=== PATIENT | female | born 1985 | race American Indian/Alaskan Native ===

== ENCOUNTER 2021-09-12 06:01 | Day surgery (SDC) | payer OTHER ==
[2021-09-09 12:49] LABS: Basophils # (Auto) 0.1 K/mm3 (0.0-0.1); Basophils % (Auto) 1.3 % (0.0-1.8); Eosinophils # (Auto) 0.1 K/mm3 (0.0-0.4); Eosinophils % (Auto) 1.1 % (0.0-4.3); Hematocrit 43.5 % (30.3-42.9); Hemoglobin 13.7 gm/dl (10.1-14.3); Lymphocytes # (Auto) 1.5 K/mm3 (1.2-5.4); Lymphocytes % (Auto) 27.9 % (13.4-35.0); Mean Corpuscular HGB Conc 32 % (30-34); Mean Corpuscular Volume 85 fl (79-97); Monocytes # (Auto) 0.4 K/mm3 (0.0-0.8); Monocytes % (Auto) 7.7 % (0.0-7.3); Platelet Count 322 K/mm3 (140-440); Red Blood Count 5.11 M/mm3 (3.65-5.03); Red Cell Distribution Width 14.1 % (13.2-15.2)
[2021-09-09 13:07] LABS: BUN/Creatinine Ratio 9; Blood Urea Nitrogen 9 mg/dL (7-17); Hemolysis Index 5
--- NOTE | 2021-09-09 14:00 | Anesthesia Consultation ---
Anesthesia Consult and Med Hx Date of service: 09/09/21 - Airway Anesthetic Teeth Evaluation: Good ROM Head & Neck: Adequate Mental/Hyoid Distance: Adequate Mallampati Class: Class II Intubation Access Assessment: Probably Good - Pulmonary Exam CTA: Yes - Cardiac Exam Cardiac Exam: RRR - Pre-Operative Health Status ASA Pre-Surgery Classification: ASA3 Proposed Anesthetic Plan: General Nerve Block: TAP - Pulmonary Hx Smoking: No Hx Asthma: Yes (albuterol prn; triggered by seasonal allergies) - Cardiovascular System Hx Hypertension: No (see details below) Hx Heart Attack/AMI: No Hx Percutaneous Transluminal Coronary Angioplasty (PTCA): No - Central Nervous System Hx Neuromuscular Disorder: Yes (chronic migraines) CVA: No Hx Back Pain: Yes Hx Psychiatric Problems: Yes (depression) - Endocrine Hx Renal Disease: No Hx Liver Disease: No Hx Insulin Dependent Diabetes: No Hx Non-Insulin Dependent Diabetes: No Hx Thyroid Disease: No - Other Systems Hx Obesity: Yes (BMI 41) - Additional Comments Anesthesia Medical History Comments: No hx anesthetic complications. Reports ongoing PCP evaluation for recent elevated BP. BP elevated in PAT, which patient reports is higher than normal and may be related to migraine at time of BP measurement. Not currently on antihypertensives.
--- NOTE | 2021-09-11 15:45 | History and Physical Report ---
History of Present Illness Date of examination: 09/10/21 History of present illness: Patient has been reassessed/reevaluated. H&P has been reviewed. No interval changes. This is a 36 years old female who presents with menstrual disorder. She complains of irregular menses, mid-cycle spotting, heavy bleeding, dysmenorrhea, history of fibroids and cramping, but denies lack of menses, clotting, history of ovarian cysts, history of thyroid disease, history of bleeding disorder, lightheadedness and fatigue. Patient's symptoms when present disrupts her normal daily activities She complains of abdominal pain, abdominal pressure, pelvic pain and pelvic pressure,. Patient's work up has included hysterosonogram with a benign endometrial biopsy and revealed large myoma. Patient has been evaluated by Dr Cruz and is not a candidate for UFE. Patient desires definitive treatment Vital Signs: Patient Profile: 36 Years Old Female LMP: 08/28/2021 Height: 63 inches Weight: 235 pounds BMI: 41.62 Temp: 97.5 degrees F BP sittin / 90 (right arm) Menstrual History: LMP (date): 08/28/2021 Current Method of Contraception: None Date of Last Pap Smear: 05/14/2021 Past History : 1 Term Births: 0 Premature Births: 0 Living Children: 0 Para: 0 Mult. Births: 0 Prev : 0 Aborta: 1 Elect. Ab: 1 Spont. 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 of genital herpes: no Hx of STD: None Review of Systems General Denies fever, chills, sweats, anorexia, fatigue, weakness, malaise, weight loss and sleep disorder. Complains of menorrhagia, pelvic pain and painful periods. Denies vaginal discharge, incontinence, dysuria, hematuria, urinary frequency, amenorrhea, abnormal vaginal bleeding, genital sores, decreased libido, painful sex, urinary urgency, hot flashes, vaginal dryness, vaginal itching and vaginal odor. CV Denies chest pains, palpitations, syncope, dyspnea on exertion, orthopnea, PND and peripheral edema. Resp Denies cough, dyspnea at rest, excessive sputum, hemoptysis, wheezing and pleurisy. GI Denies nausea, vomiting, diarrhea, constipation, change in bowel habits, abdominal pain, melena, hematochezia, jaundice, gas/bloating, indigestion/heartburn, dysphagia and odynophagia. Breast Denies left breast lump, right breast lump, nipple discharge, bloody discharge from nipple, breast pain, abnormal mammogram and breast enlargement. Psych Denies depression, anxiety, irritability and mood swings. Past History Past Medical History: other (SEE HPI) Past Surgical History: Other (SEE HPI) Social history: full code, other (SEE HPI) Family history: other (SEE HPI) Medications and Allergies Allergies Allergy/AdvReac Type Severity Reaction Status Date / Time amoxicillin AdvReac Severe Shortness Verified 09/04/21 12:33 of Breath Home Medications Medication Instructions Recorded Confirmed Last Taken Type Albuterol *Only Ed* 2 puff INHALATION PRN 09/04/21 09/12/21 09/12/21 05:00 History Butalb/Acetaminophen/Caffeine 1 each PO PRN 09/04/21 09/12/21 09/09/21 09:00 History [Fioricet 50-300-40 mg CAP] Topiramate [Topamax] 100 mg PO BID 09/04/21 09/12/21 09/11/21 20:00 History Venlafaxine [Effexor] 75 mg PO DAILY 09/04/21 09/12/21 09/11/21 20:00 History Zysol 5 mg PO DAILY 09/04/21 09/11/21 20:00 History Active Meds: Active Medications Acetaminophen (Acetaminophen 500 Mg Tab) 1,000 mg PO PREOP KATHY Celecoxib (Celecoxib 200 Mg Cap) 200 mg PO PREOP NR Stop: 09/12/21 23:59 Fentanyl (Fentanyl 100 Mcg/2 Ml Inj) 100 mcg IV ONCE PRN PRN Reason: sedation for nerve block Gabapentin (Gabapentin 300 Mg Cap) 300 mg PO PREOP NR Stop: 09/12/21 23:59 Lactated Ringer's (Lactated Ringers) 1,000 mls @ 100 mls/hr IV DIRECT KATHY Stop: 09/12/21 23:59 Clindamycin HCl (Cleocin 900 Mg/50 Ml) 900 mg in 50 mls @ 100 mls/hr IV PREOP NR; Protocol Stop: 09/12/21 22:00 Gentamicin Sulfate 500 mg/ (Sodium Chloride) 112.5 mls @ 200 mls/hr IV PREOP KATHY; Protocol Stop: 09/12/21 23:00 Midazolam HCl (Midazolam 2 Mg/2 Ml Inj) 2 mg IV PREOP NR Stop: 09/12/21 23:59 Scopolamine (Scopolamine Transdermal Patch 72 Hr) 1 each TD PREOP NR Stop: 09/12/21 23:59 Review of Systems Constitutional: other (SEE HPI) Exam - Physical Exam Narrative exam: HEENT: normocephalic, no lesions or deformities Skin no significant abnormal lesions or rashes .Tatoo(s) are present Chest: respiratory effort normal, clear to auscultation CV: regular, normal S1-S2, no murmur, no rub, no gallop Abdomen: Obese, normal bowel sounds, soft, nontender, no HSM Neuro: no gross anomalities Extremities: no clubbing, cyanosis, or edema .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 Questions answered. Discussed with patient various medical, surgical and radiological therapies common for treatment including expectant management, myomectomy hysterectomy and uterine artery embolization. Patient desires to retain future fertility. She desires myomectomy. Discussed risks and benefits of laparotomy and robotic assisted approaches Patient desires robotic assisted myomectomy. . Discuss the risks of the surgery including infection, bleeding possibly heavy enough to require a blood transfusion, possible damage to bowel, bladder or ureter. Patient understands that there is a possibility that a hysterectomy maybe indicated for severe bleeding not resoved with conservative measures.Patient advised the small risks of spreading of malignancy if morcellator is used during the surgery patient understands and approve of use if necessary Discussed the limitation of removing all oher myomas with the DaVinci device and the possibly of needing a laparotmy. . All her questions were answered Patient understands and desires to proceed. (2) Menorrhagia Current Visit: No Status: Acute Qualifiers: Menorrhagia type: with irregular cycle Qualified Code(s): N92.1 - Excessive and frequent menstruation with irregular cycle Plan to address problem: Probably secondary to # 1 (3) Migraine Current Visit: No Status: Acute Qualifiers: Migraine type: unspecified Intractability: not intractable (4) Body mass index greater than 40 Current Visit: No Status: Acute Plan to address problem: Patient has been advised that obesity does increase risks of surgical and risks of post operative complications.
[~2021-09-12 06:01] MED LIST: ACETAMINOPHEN 500 MG TAB PO SCH; CELECOXIB 200 MG CAP PO NR; GABAPENTIN 300 MG CAP PO NR; LACTATED RINGERS 1,000 ML IV SCH; MIDAZOLAM 2 MG/2 ML INJ IV NR; SCOPOLAMINE TRANSDERMAL PATCH 72 HR TD NR; fentaNYL 100 MCG/2 ML INJ IV PRN
[2021-09-12] MEDS ORDERED: GENTAMICIN 500 MG in SODIUM CHLORIDE 0.9% 100 ML IV SCH (07:00)
[2021-09-12] MEDS ORDERED: fentaNYL 100 MCG/2 ML INJ ONE (07:06)
[2021-09-12] MEDS ORDERED: propofoL 200 MG/20 ML VIAL IV ONE (07:06)
[2021-09-12] MEDS ORDERED: ROCURONIUM 50 MG/5 ML INJ IV ONE ×2 (07:06→09:37)
[2021-09-12] MEDS ORDERED: LIDOCAINE PF 100 MG/5 ML (CARDIAC SYRINGE) IV ONE (07:06)
[2021-09-12] MEDS ORDERED: BUPIVACAINE/PF (0.25%) 2.5 MG/ML 30 ML VIAL INFILTRATI ONE (07:18)
[2021-09-12] MEDS ORDERED: cloNIDine/PF 1,000 MCG/10 ML VIAL EP ONE (07:18)
[2021-09-12] MEDS ORDERED: dexAMETHasone 20 MG/5 ML VIAL ONE ×3 (07:18→09:15)
--- NOTE | 2021-09-12 07:26 | Anesthesia Day of Surgery ---
Anesthesia Day of Surgery - Day of Surgery Patient Examined: Yes Patient H&P Reviewed: Yes Patient is NPO: Yes
[2021-09-12] MEDS ORDERED: SODIUM CHLORIDE 0.9% 100 ML ONE (07:42)
[2021-09-12] MEDS ORDERED: VASOPRESSIN 20 UNIT/1 ML INJ ONE (07:43)
[2021-09-12] MEDS ORDERED: ONDANSETRON 4 MG/2 ML INJ IV PRN (08:00)
[2021-09-12] MEDS ORDERED: oxyCODONE /ACETAMINOPHEN 5-325MG TAB PO PRN (08:00)
[2021-09-12] MEDS ORDERED: HYDROmorphone 1 MG/1 ML INJ IV PRN (08:00)
[2021-09-12] MEDS ORDERED: CITRIC ACID-SOD CITRATE 500 ML IV ONE (08:23)
[2021-09-12] MEDS ORDERED: SODIUM CHLORIDE 0.9% 100 ML IVPB IV ONE (08:46)
[2021-09-12] MEDS ORDERED: VASOPRESSIN 20 UNIT/1 ML INJ IM ONE (08:46)
[2021-09-12] MEDS ORDERED: CITRIC ACID-SOD CITRATE SOLN 500 ML IV SOLN IV ONE (08:46)
[2021-09-12] MEDS ORDERED: SODIUM CHLORIDE 0.9% IRR 1,500 ML BOTTLE IR ONE (08:47)
[2021-09-12] MEDS ORDERED: SODIUM CHLORIDE 0.9% IRRIG SOLN 2000 ML IR ONE (08:47)
[2021-09-12] MEDS ORDERED: KETAMINE/STERILE WATER 50 MG/ML SYRINGE ONE (09:13)
[2021-09-12] MEDS ORDERED: ONDANSETRON 4 MG/2 ML INJ ONE (09:14)
[2021-09-12] MEDS ORDERED: GLYCOPYRROLATE 0.4 MG/2 ML INJ ONE (09:15)
[2021-09-12] MEDS ORDERED: NEOSTIGMINE 10MG/10 ML INJ MDV ONE (09:15)
[2021-09-12] MEDS ORDERED: LACTATED RINGERS 1,000 ML ONE (09:29)
[2021-09-12] MEDS ORDERED: HYDROmorphone 1 MG/1 ML INJ ONE (11:27)
--- NOTE | 2021-09-12 12:16 | Operative Report ---
Operative Report Operative Report: Date of procedure: September 12, 2021 Pre-operative diagnosis: Symptomatic leiomyomata with menorrhalgia dysmenorrhea Post-operative diagnosis: Same Procedure name(s): Robotic assisted myomectomy Surgeon: Gold Livingston MD Rotary Slicing Machine Operator: [] Anesthesia: General endotracheal EBL: 100 cc Complications: None Findings: Uterus with multiple leiomyomata largest of fundal posterior pedunculated myoma approximately 14 to 15 cm in diameter she had anterior myoma measuring 5 cm and another smaller pedunculated myoma approximately 3 cm. Patient with normal fallopian tubes and ovaries bilaterally Specimen(s): Leiomyomata Procedure: Patient taken operating room where general endotracheal anesthesia was induced difficulty. She was placed in dorsal lithotomy position prepped and draped in usual normal sterile fashion for robotic procedure. The Marie catheter was placed in urinary bladder without difficulty speculum placed in the vagina. A medium Munax V care uterine manipulator was placed without any difficulty. Then attention was switched to the patient's abdomen. Supra-umbilical incision was made with a knife. Spread with a hemostat. A 10-12 Trocar was placed in this incision while lifting out anterior abdominal wall under direct visualization. Intra-abdominal cavity was entered without any evidence of internal organ damage. Patient was insufflated approximately 3 and half liters of CO2 gas. Patient's pelvic findings noted above. The patient was perceived to be a c andidate for robotic procedure. Three 8 mm robotic instrument trocars were placed. One on either side of the midline camera trocar approximately 8 cm from the midline and a third in the left lower quadrant approximately 2 fingerbreadths above the iliac crest. The trocars were placed under direct visualization with no signs of internal organ damage. An digital assistant port was placed in the right lower quadrant 2 fingerbreadths above the iliac crest under direct visualization without any evidence of internal organ damage, this was a 10-12 trocar. Nehemias Sin fascia closure systems were placed in both the right lower quadrant trocar position and the midline trocar camera position. The patient was then placed in severe Trendelenburg position. At this time the da Rickie robot was docked on the patient's left side and robotic trocars were connected and robotic instruments placed in the normal fashion. At that time I my place under the operating zaragoza. The large leiomyomata appear to be pedunculated myoma with a thick base coming from the fundus of the uterus. Pitressin was injected in the base of this myoma also Pitressin was placed in the myometrium under the other remaining myomas. After allowing adequate time for effect proceeded with using the robotic scissors to excised the base of the large myoma. This was done successfully revealing a defect in the serosa and superficial myometrium from this area. The 2 other myomas were excised by making a incision through the serosa over the myomas. This was followed by sharp and blunt dissection removing the myoma from the myometrium. The beds from myomas were hemostatic irrigation Bovie. All the defects in the myometrium were closed in layers with 0 vicryl V-Loc. The small myoma defect serosa were closed in a baseball pattern to try to diminish the area suture through the serosa. The uterus was copiously irrigated and found to be hemostatic. Attention was then switched to removing the myomas. Morcellator was then placed through the digital assistant port and each myoma was removed using the morcellator. Obviously the large moment to several passes through the morcellator before it could be removed from the pelvic cavity. At the morcellation of the myomas, portions of the morcellated myomas were then collected as many as could be seen. Patient's pelvis was copiously irrigated and suctioned and attempt to removed small pieces of the myomas. The uterus inspected and found to be hemostatic. Surgicel powder was then placed along the uterine incisions sparingly with minimal areas of bleeding. Interceed was p laced along the uterine suture lines in effort to try to prevent future adhesions. The patient's was inspected and found to be hemostatic. All instruments were removed. The da Rickie device was undocked. The abdominal incisions were closed with 2-0 Vicryl it was placed through the Nehemias Sin fascial closure system. This was followed by 4-0 Monocryl subcutaneously. Patient tolerated procedure well. Patient was awakened in operating room and accompanied to recovery room in good condition.
[2021-09-12] MEDS ORDERED: HYDROcodone/ACETAMINOPHEN 5-325 MG TAB PO PRN (12:17)
[2021-09-12] MEDS ORDERED: ACETAMINOPHEN 325 MG TAB PO PRN (12:17)
[2021-09-12] MEDS ORDERED: KETOROLAC 30 MG/1 ML INJ IV ONE (12:17)
--- NOTE | 2021-09-12 14:30 | Discharge Summary ---
Short Stay Discharge Plan Activity: advance as tolerated Diet: regular Wound: open to air Additional Instructions: Patient was admitted underwent the above him procedure without any complications. Patient was admitted and underwent above procedure without complications. Her post operative extended recovery observation course was benign she was afebrile throughout. Patient had no orthostatic symptoms. Patient was tolerating regular diet and voiding without difficulty at time of discharge. Patient incision was healing well without evidence of infection. Patient will be discharged with follow-up in office in 1-2 weeks for postop check . Patient to call office for any fever, chills, nausea, vomiting or pain not controlled by pain medication. Follow up with: PRIMARY CARE, [Primary Care Provider] - 7 Days Prescriptions: Ibuprofen [Motrin] 800 mg PO TID PRN #30 tablet PRN Reason: Pain oxyCODONE /ACETAMINOPHEN [Percocet 5/325 mg] 1 - 2 tab PO Q6HR PRN #20 tablet PRN Reason: Pain
--- NOTE | 2021-09-12 15:06 | Post Anesthesia Evaluation ---
- Post Anesthesia Evaluation Patient Participated: Yes Airway Patent: Yes Stable Respiratory Function: Yes Nausea/Vomiting: No Temp > 96.8F: Yes Pain Manageable: Yes Adequeate Hydration: Yes Anesthesia Complications: No Other Comments: HD stable, pain well controlled, ambulated and voided without difficulty. OK for d/c to home.
[2021-09-12 17:13] VITALS: BP 112/60
== END 2021-09-12 14:30 | disposition home or self-care (01) ==
LOC: OR 06:01
PROVIDERS: ATTEND Obstetrics & Gynecology
DX: N92.0 Excessive and frequent menstruation with regular cycle (principal); N94.6 Dysmenorrhea, unspecified; D25.1 Intramural leiomyoma of uterus; G43.909 Migraine, unspecified, not intractable, without status migrainosus; J45.909 Unspecified asthma, uncomplicated; E66.9 Obesity, unspecified; K21.9 Gastro-esophageal reflux disease without esophagitis; F32.9 Major depressive disorder, single episode, unspecified; Z20.822 Contact with and (suspected) exposure to COVID-19; Z98.890 Other specified postprocedural states; Z88.6 Allergy status to analgesic agent; Z79.899 Other long term (current) drug therapy; Z68.41 Body mass index [BMI] 40.0-44.9, adult
CPT/HCPCS: 36415; 58546; 64488; 80048; 84703; 85025; 86850; 86900; 86901; 88305; C1765; C1782; J0735; J1100; J1170; J1580; J1815; J2001; J2250; J2405; J2704; J2710; J3010; J3490; J7120; J7502; S2900; U0003; 64450

== ENCOUNTER 2021-09-15 09:53 | Emergency (ER) | payer OTHER ==
[2021-09-15] MEDS ORDERED: ONDANSETRON 4 MG/2 ML INJ IV ONE ×2 (11:35→17:19)
[2021-09-15] MEDS ORDERED: SODIUM CHLORIDE 0.9% 1000 ML 1,000 ML IV ONE (11:35)
--- NOTE | 2021-09-15 11:47 | Emergency Department Report ---
HPI - General Chief Complaint: Dyspnea/Respdistress Time Seen by Provider: 09/15/21 11:16 - HPI HPI: 36-year-old G1, P1 female with history of migraine headaches and menorrhagia/dysmenorrhea status post robotic assisted myomectomy performed by Dr. Cosby of [facility] on September 12, 2021 presents complaining of 2 days of nausea, hematuria, and abdominal pain. The patient reports that after being discharged from her surgery she initially felt fine. She has had some mild shortness of breath ever since her surgery which continues now. However, yest erday she felt nauseated all day long and took Zofran at one point which provided some relief. She has not vomited. She noted last night that her urine was tinged with blood and she had some pain in her right hip. This morning, the patient reports that her urine was very bloody and she developed left lower quadrant abdominal pain in addition to her nausea. At present she reports feeling slightly short of breath, slightly nauseated and left lower quadrant pain which is constant but occasionally cramping. She denies any associated vaginal bleeding, dysuria, back pain, fever/chills, headache, vision change, chest pain, cough, vomiting, focal weakness, sensory changes, or any other complaints. ED Past Medical Hx - Past Medical History Hx Hypertension: No (see details below) Hx Heart Attack/AMI: No Hx Congestive Heart Failure: No Hx Diabetes: No Hx GERD: Yes Hx Liver Disease: No Hx Renal Disease: No Hx Sickle Cell Disease: No Hx Headaches / Migraines: Yes (MIGRAINES) Hx Seizures: Yes (MICRO SEIZURES-POSSIBLE ASSOCIATED WITH MIGRAINES ???) Hx Kidney Stones: No Hx Asthma: Yes (albuterol prn; triggered by seasonal allergies) Hx Tuberculosis: No Hx HIV: No - Social History Smoking Status: Never Smoker - Medications Home Medications: Home Medications Medication Instructions Recorded Confirmed Last Taken Type Albuterol *Only Ed* 2 puff INHALATION PRN 09/04/21 09/12/21 09/12/21 05:00 History Butalb/Acetaminophen/Caffeine 1 each PO PRN 09/04/21 09/12/21 09/09/21 09:00 History [Fioricet 50-300-40 mg CAP] Topiramate [Topamax] 100 mg PO BID 09/04/21 09/12/21 09/11/21 20:00 History Venlafaxine [Effexor] 75 mg PO DAILY 09/04/21 09/12/21 09/11/21 20:00 History Zysol 5 mg PO DAILY 09/04/21 09/11/21 20:00 History Ibuprofen [Motrin] 800 mg PO TID PRN #30 tablet 09/12/21 Unknown Rx Ondansetron [Zofran Odt] 4 mg PO Q8HR PRN #15 tab.rapdis 09/15/21 Unknown Rx oxyCODONE /ACETAMINOPHEN [Percocet 1 tab PO Q6HR PRN #15 tablet 09/15/21 Unknown Rx 5/325] ED Review of Systems ROS: Stated complaint: POST OP COMPLICATION Other details as noted in HPI Comment: All other systems reviewed and negative Constitutional: denies: chills, fever Eyes: denies: eye pain, vision change ENT: denies: throat pain, congestion Respiratory: shortness of breath. denies: cough Cardiovascular: denies: chest pain, palpitations Gastrointestinal: abdominal pain, nausea. denies: vomiting, diarrhea, constipation, melena, hematochezia Genitourinary: hematuria. denies: dysuria, frequency, discharge Musculoskeletal: denies: back pain, arthralgia Skin: denies: rash, lesions Neurological: denies: headache, weakness, numbness, paresthesias Hematological/Lymphatic: denies: easy bleeding Physical Exam - Physical Exam Vital Signs: Vital Signs 09/15/21 10:14 Temperature 99 F Pulse Rate 77 Respiratory 20 Rate Blood Pressure 181/113 [Left] O2 Sat by Pulse 100 Oximetry Physical Exam: GENERAL: Well developed and well nourished. No acute distress HEAD: Normocephalic. No obvious signs of trauma. ENT: Dry mucous membranes. EYES: Extraocular movements are intact. Pupils are equal round and reactive to light bilaterally NECK: Supple. Full ROM is intact. Trachea is midline. LUNGS: Tachypneic but not in respiratory distress. Equal chest rise bilaterally. Clear to auscultation bilaterally but with decreased breath sounds at the bases bilaterally. CARDIOVASCULAR: Regular rate and rhythm. No murmurs or rubs. VASCULAR: Cap refill < 2 seconds. Trace pitting edema bilaterally. ABDOMEN: Abdomen is soft and only slightly distended. There are multiple laparoscopic incisions which are clean/dry/intact and closed with glue. There is significant tenderness noted in the right lower quadrant as well as in the suprapubic and far left lower quadrant near the adnexa with voluntary but no involuntary guarding. There is no rebound tenderness. SKIN: Skin is warm and dry NEURO: Patient is awake, alert, and oriented. 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 No focal deficits. Normal motor and sensory exam throughout. Normal speech. MUSCULOSKELETAL: No obvious deformities. No significant tenderness. Normal ROM throughout. BACK/SPINE: No midline tenderness or step-offs of the C/T/L spine. No costovertebral angle tenderness. ED Course Vital Signs 09/15/21 10:14 Temperature 99 F Pulse Rate 77 Respiratory 20 Rate Blood Pressure 181/113 [Left] O2 Sat by Pulse 100 Oximetry ED Medical Decision Making - Lab Data Result diagrams: 09/15/21 Unknown 09/15/21 Unknown - EKG Data -: EKG Interpreted by [facility] - EKG Data 09/15/21 11:52 Normal sinus rhythm. Normal axis. Normal intervals. No ectopy. No significant ST segment or T wave abnormalities. - Radiology Data Radiology results: report reviewed - Medical Decision Making 36-year-old female who is status post robotic assisted myomectomy 3 days ago presenting with 2 days of nausea, abdominal pain, and bloody urine as well as shortness of breath since the surgery. Patient did not get a incentive spirometer when she went home and so I have ordered 1 now. On initial assessment she is afebrile and with normal vital signs with exception of elevated blood pressure which may be secondary to pain. On physical examination she is in no acute distress but does seem uncomfortable, especially when moved or when her abdomen is palpated. She has dry mucous membranes. Lungs are clear to auscultation. She has well-healed laparoscopic incisions to the abdomen which are clean, dry, and intact and closed. She does have significant tenderness noted in the right lower quadrant of the abdomen as well as suprapubically and in the left adnexal region. We will send a full set of labs including urinalysis and obtain chest x-ray and EKG. We will give an incentive spirometer. Will give 1 L of IV fluids, Dilaudid, and Zofran, and will reach out to the patient's surgeon for further recommendations regarding necessity for imaging. At 11:45 AM I spoke with Dr. Salazar of [facility] who is covering for Dr. Cosby. We discussed the case and she states that she agrees with current management and work-up with labs but recommends obtain CT of the abdomen pelvis to assess for evidence of blood in the abdomen. She says she feels the symptoms are likely normal sequela of laparoscopic myomectomy but agrees with performing work-up and getting medications for symptomatic relief. Labs have resulted and reveal no significant leukocytosis or anemia. Creatinine is within normal range and there are no significant electrolyte abnormalities with the exception of hypokalemia with potassium 3.3 which we will replete. UA shows greater than 182 RBCs and 10 WBCs with negative leuk esterase most consistent with hematuria. Chest x-ray shows streaky bibasilar parenchymal opacities which could represent pneumonia versus atelectasis. In this setting given that the patient reports pain and was discharged without incentive spirometry, I favor atelectasis over pneumonia On repeat assessment of the patient, the patient reports she feels much better. She also reveals that she although she was prescribed Percocet, she was unable to fill it at the pharmacy because the prescription listed 1 to 2 tablets every 6 hours which the pharmacy is unable to fill. This explains the patient's significant postop pain, stented breathing resulting in atelectasis, and likely her other symptoms other than hematuria. I ensured that the patient was given incentive spirometer and taught how to use it. She used in front of me. CT of the abdomen pelvis reveals postop changes with small pneumoperitoneum as well as bibasilar atelectasis, just as suspected. I again spoke with Dr. Salazar of [facility] at [phone] and she agreed with disposition home with pain meds, incentive spirometry, and follow-up. The patient was encouraged to follow-up with Dr. Cosby over the next few days. She was given return precautions. She expressed understanding agreement with our plan of care. I told her to throw out her previous prescription and will prescribe 15 pills of Percocet as well as Zofran. Patient agreed Critical care attestation.: If time is entered above; I have spent that time in minutes in the direct care of this critically ill patient, excluding procedure time. ED Disposition Clinical Impression: Intramural leiomyoma of uterus, Post-op pain, Atelectasis, Hematuria, Hypokalemia Disposition: 01 HOME / SELF CARE / HOMELESS Is pt being admited?: No Condition: Stable Instructions: Pain Relief Before and After Surgery, How to Use an Incentive Spirometer, Atelectasis, Adult, Pain Medicine Instructions, [id number] Additional Instructions: Please control your pain using pain medication and take Zofran as needed for nausea. Continue to use your incentive spirometer as directed. This will prevent you from developing pneumonia, and infection in your lungs. You should follow up with Dr. Cosby over the next several days. Return for any significantly worsening symptoms or new health concerns. Prescriptions: oxyCODONE /ACETAMINOPHEN [Percocet 5/325] 1 tab PO Q6HR PRN #15 tablet PRN Reason: Pain Ondansetron [Zofran Odt] 4 mg PO Q8HR PRN #15 tab.rapdis PRN Reason: Nausea And Vomiting Referrals: TIMOTHY OCSBY MD [Primary Care Provider] - 3-5 Days
[2021-09-15] MEDS ORDERED: HYDROmorphone 1 MG/1 ML INJ IV ONE (11:48)
[2021-09-15 12:17] LABS: Basophils # (Auto) 0.1 K/mm3 (0.0-0.1); Eosinophils # (Auto) 0.1 K/mm3 (0.0-0.4); Eosinophils % (Auto) 1.7 % (0.0-4.3); Hematocrit 37.1 % (30.3-42.9); Hemoglobin 12.2 gm/dl (10.1-14.3); Lymphocytes % (Auto) 19.4 % (13.4-35.0); Mean Corpuscular HGB Conc 33 % (30-34); Mean Corpuscular Volume 85 fl (79-97); Monocytes # (Auto) 0.4 K/mm3 (0.0-0.8); Monocytes % (Auto) 7.3 % (0.0-7.3); Platelet Count 260 K/mm3 (140-440); Red Blood Count 4.36 M/mm3 (3.65-5.03); Red Cell Distribution Width 13.8 % (13.2-15.2)
[2021-09-15 12:25] LABS: Bilirubin,Urine NEG (Negative); Blood,Urine LG (Negative); Color,Urine Yellow (Yellow); Mucus,Urine 1+ /HPF; Urobilinogen,Urine < 2.0 mg/dL (<2.0)
[2021-09-15 12:26] LABS: RBC,Urine > 182.0 /HPF (0.0-6.0)
[2021-09-15 12:31] LABS: INR 0.95 (0.87-1.13); Partial Thromboplastin Time 25.4 Sec. (24.2-36.6)
[2021-09-15 12:38] LABS: Alanine Aminotransferase 10 units/L (7-56); Albumin 4.2 g/dL (3.9-5); BUN/Creatinine Ratio 11; Blood Urea Nitrogen 9 mg/dL (7-17); Calcium 9.3 mg/dL (8.4-10.2); Hemolysis Index 7
[2021-09-15 12:39] LABS: Bilirubin,Direct < 0.2 mg/dL (0-0.2)
--- NOTE | 2021-09-15 12:43 | XRay Report ---
CHEST 1 VIEW 09/15/2021 11:29 AM INDICATION / CLINICAL INFORMATION: sob. COMPARISON: None available. FINDINGS: SUPPORT DEVICES: None. HEART / MEDIASTINUM: No significant abnormality. LUNGS / PLEURA: Streaky bibasilar parenchymal disease could represent early pneumonia or less likely atelectasis No pneumothorax. ADDITIONAL FINDINGS: No significant additional findings. IMPRESSION: 1. Streaky bibasilar parenchymal disease. Favor pneumonia over atelectasis Signer Name: Sonido Paniagua MD Signed: 09/15/2021 12:38 PM Workstation Name: [id number]
[2021-09-15] MEDS ORDERED: POTASSIUM CHLORIDE ER 20 MEQ TAB PO ONE (13:38)
--- NOTE | 2021-09-15 14:42 | Cat Scan Report ---
CT ABDOMEN AND PELVIS WITH CONTRAST INDICATION: RLQ and LLQ tend. TECHNIQUE: Axial CT images were obtained through the abdomen and pelvis after 100 cc Omni [address]. [address] scans at this location are performed using CT dose reduction for ALARA by means of automated expos ure control. COMPARISON: None available. FINDINGS: LOWER CHEST: Moderate bibasilar atelectasis. LIVER: No significant abnormality. GALLBLADDER: No significant abnormality. BILE DUCTS: No significant abnormality. PANCREAS: No significant abnormality. SPLEEN: No significant abnormality. ADRENALS: No significant abnormality. RIGHT KIDNEY and URETER: No significant abnormality. LEFT KIDNEY and URETER: No significant abnormality. STOMACH and SMALL BOWEL: No significant abnormality. COLON: No significant abnormality. APPENDIX: Normal. PERITONEUM: Small amount of free pelvic fluid. No abscess/hematoma. Several tiny bubbles of free air. No fluid collection. LYMPH NODES: No significant adenopathy. AORTA and ARTERIES: No significant abnormality. IVC and VEINS: No significant abnormality. URINARY BLADDER: No significant abnormality. REPRODUCTIVE ORGANS: Several linear hypodense areas within the lower anterior uterus likely postopera tive. ADDITIONAL FINDINGS: Moderate amount of gas within the abdominal wall muscles and small amount of sub cutaneous gas likely postsurgical. SKELETAL SYSTEM: No significant abnormality. IMPRESSION: 1. Probable postoperative changes within the lower anterior uterus with small pneumoperitoneum and ga s within the abdominal wall muscles. 2. Bibasilar atelectasis. Signer Name: Sonido Paniagua MD Signed: 09/15/2021 2:37 PM Workstation Name: [id number]
[2021-09-15 15:59] LABS: Hematocrit 33.6 % (30.3-42.9); Hemoglobin 11.6 gm/dl (10.1-14.3)
[2021-09-15 19:08] VITALS: BP 153/89
--- NOTE | 2021-09-18 17:19 | Electrocardiograph Report ---
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
== END 2021-09-15 19:15 | disposition home or self-care (01) ==
LOC: ED 09:53
DX: D25.1 Intramural leiomyoma of uterus (principal); G89.18 Other acute postprocedural pain; R31.9 Hematuria, unspecified; J98.11 Atelectasis; E87.6 Hypokalemia
CPT/HCPCS: 36415; 71045; 74177; 80048; 80076; 81001; 83690; 85014; 85018; 85025; 85610; 85730; 87086; 93005; 93010; 96361; 96374; 96375; 96376; 99284; J1170; J2405; Q9967